=== PATIENT | male | born 2005 | race Caucasian/White ===

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

== ENCOUNTER 2023-03-16 11:20 | Emergency (ER) | payer OTHER, MEDICAID, SELFPAY ==
[2023-03-16 11:25] VITALS: BP 123/73; PULSE 94; RESP 14; TEMP 36.8; O2SAT 100
--- NOTE | 2023-03-16 11:48 | ED.GENADUL_ITS ---
Discharge Plan Disposition Patient Disposition: Home Condition: Stable Discharge Details Clinical Impression: Infectious mononucleosis Primary Care Provider: Tatyana Velazco ED Provider: Jacquelyn Temple Home Meds and New Rx's Prescriptions: No Action No Known Home Meds Discharge Instructions Instructions: Mononucleosis (ED) Additional Instructions: You tested positive for the mononucleosis virus today. Your rapid strep test, COVID and influenza tests today were negative. Drink plenty of fluids and get plenty of rest. Alternate tylenol and motrin as needed and directed for pain. Follow up with your primary care doctor in 1 week as needed. Return to the emergency department with any worsening or new concerning symptoms. Stand Alone Forms: Work Release Discharge Data Discharge Physician: Jacquelyn Temple Medical Decision Making 17-year-old male with history of asthma presents with facial and eyelid swelling, sore throat and swollen glands in his neck for the past 2 days. Patient appears fairly comfortable and nontoxic. He does have mild to moderate facial edema, mostly periorbital. He has no periorbital erythema or pain with EOMI to suggest orbital cellulitis. He has bilateral tonsillar exudates, tonsillar and uvular edema. He has mild bilateral anterior cervical lymphadenopathy. He has mild right upper quadrant tenderness but no significant hepato or splenomegaly. Suspect mononucleosis. Also could consider strep or other viral process. Will obtain rapid strep, monoscreen, FLUVID. As he has reassuring vital signs with normal heart rate and oxygen saturation, do not see an indication for IV, IV fluid hydration or lab work. Will give a dose of Motrin, Tylenol, Decadron p.o. and reassess. Monoscreen positive. Rapid strep and FLUVID negative. Patient reassessed and he feels much better. Patient feels comfortable going home. He was advised on the importance of increasing fluids, rest and alternating Tylenol and Motrin. He requested a work note. Advised to follow up with the primary care doctor for re-evaluation. Usual and customary return precautions given prior to discharge. Medical Records Medical records reviewed: Yes I reviewed the patient's medical records. Lab Data Lab results reviewed: Yes I reviewed the patient's lab results. Labs: 03/16/23 11:50 Pharynx Group A Streptococcus Culture - Pending Laboratory Tests Range/Units 03/16/23 03/16/23 11:50 11:50 COVID-19 Source Nasopharynx SARS-CoV-2 (PCR) (Negative) Negative Monoscreen (Negative) POSITIVE A Influenza Type A (PCR) (Negative) Negative Influenza Type B (PCR) (Negative) Negative RSV (PCR) (Negative) Negative HPI General Mode of arrival: ambulatory . Date/Time Provider Initiated Documentation: 03/16/23 11:21 . Limitations to Documentation: no limitations . Information obtained by: patient . HPI Narrative: Patient is a 17-year-old male with history of asthma presents for 2 days of facial swelling, predominantly around his eyes in addition to sore throat. He is also felt that the lymph nodes in his throat have been swollen. Patient states he took Benadryl last night and has had some improvement in his facial and eye swelling. He states he has been able to swallow liquids but having difficulty eating foods due to his sore throat and difficulty swallowing. He has not taken any Tylenol or ibuprofen for his symptoms. Mom reports that patient's brother had similar symptoms occurring a few years ago and was diagnosed with mono and strep. Pt denies fever, nasal congestion, cough, nausea, vomiting, diarrhea. He denies any new soaps, lotions, detergents, medications or known sick contacts. Related Data Home Medications Medication Instructions Recorded Confirmed Unknown [No Known Home Meds] 07/21/22 03/16/23 Allergies Allergy/AdvReac Type Severity Reaction Status Date / Time ondansetron Allergy Hives Unverified 03/16/23 11:33 General Stated Complaint: Sorethroat SHWETHA: 3 Review of Systems All systems reviewed & are unremarkable except as noted in HPI and below Constitutional Constitutional: Reports as per HPI, Denies chills and Denies fever(s) Eyes Eyes: Denies blurry vision ENT Ears, Nose, Mouth, and Throat: Denies dizziness, Reports odynophagia, Reports sore throat, Denies throat swelling and Reports other (facial swelling) Cardiovascular Cardiovascular: Denies chest pain and Denies dyspnea Respiratory Respiratory: Denies cough and Denies dyspnea Gastrointestinal Gastrointestinal: Denies abdominal pain, Denies diarrhea, Reports odynophagia and Denies vomiting Genitourinary Genitourinary: Denies hematuria and Denies dysuria Musculoskeletal Musculoskeletal: Denies back pain and Denies numbness Integumentary/Breasts Skin/Breast: Denies lesions and Denies rash Neurologic Neurologic: Denies dizziness, Denies localized weakness and Denies numbness Allergic/Immunologic Allergic/Immunologic: Denies throat swelling PFSH All Active Problems (Updated 03/16/23 @ 12:58 by Jacquelyn Temple DO) Infectious mononucleosis (Acute) Allergic rhinitis (Acute) Decreased vision in both eyes (Acute 12/31/17) [place] - RX glasses. Mild intermittent asthma, uncomplicated (Acute 11/01/15) Routine child health exam (Acute 05/26/13) Medical History Asthma Learning disability (03/31/18) had IEP but no longer needed by 2020 Surgical History Myringotomy w/ PE (pressure equalizing) tubes times 2 with surgery to remove 1 tube Family History Mother No problems noted. Father Adopted Other Diabetes MGGM, MGGF Essential hypertension maternal side Personal history of malignant neoplasm maternal side -many types Social History Smoking/Tobacco Use Status: Never Second Hand Exposure: No Smoking risk assessment performed?: Yes Alcohol Intake: never Drug use: Never Substance use type: does not use Household members: family Education Level: high school Details: 12th grade [employer] Pets and animals: Yes Pets and animals: cat(s) and dog(s) Seatbelt use: always Helmet use: Yes Helmet use: always Water heater temp set <120 deg: Yes Fire extinguisher in home: Yes Carbon monox detector in home: Yes Firearms in home: Yes Firearms unloaded and locked: Yes Do you feel safe at home: Yes Do you feel safe in your relationship?: Yes Additional Social history: mother at bedside Exam Const General: cooperative and no acute distress Orientation: alert, awake and oriented x3 HENMT Head: normal to inspection Ears: hearing grossly normal bilaterally, external ears normal, TM's normal bilaterally and TM abnormal scarred on the left General nose exam: external nose normal Mouth: oral mucosae normal Throat: uvula midline, posterior oropharynx abnormal edema, erythema and exudates and uvular edema Eyes General: appearance normal, both eyes and all related structures Periorbital: periorbital findings abnormal bilaterally periorbital swelling (mild-moderate, able to evaluate eyes) Pupils: PERRL EOM: EOM intact bilaterally Neck Neck: normal visual inspection, lymphadenopathy (b/l anterior cervical) and No submandibular swelling Chest Chest: normal inspection of the chest and no tenderness Resp Effort & Inspection: normal respiratory effort and able to speak in complete sentences Auscultation: clear to auscultation bilaterally Cardio Rate: regular rate Rhythm: regular rhythm GI Inspection: normal to inspection Palpation: soft, not firm, no hepatosplenomegaly, not rigid and tender in the RUQ Auscultation: hypoactive bowel sounds Skin General skin exam: no rashes or lesions noted Neuro General: patient alert, patient awake and patient oriented x3 Cognition: normal cognition Speech: speech normal Motor: muscle tone normal throughout Sensory Exam: no sensory deficits noted Extrem General: normal to inspection, full ROM, capillary refill normal, no calf tenderness bilaterally and no edema Psych Appearance: grossly normal Mental Status: mental status grossly normal Speech and Movement: speech and movement normal Affect: normal affect Course Vital Signs Vital signs: Vital Signs Temperature 98.2 F 03/16/23 11:25 Pulse 94 H 03/16/23 11:25 Respiratory Rate 14 03/16/23 11:25 Blood Pressure 123/73 03/16/23 11:25 Pulse Oximetry 100 03/16/23 11:25 Temperature 98.2 F 03/16/23 11:25 Temperature Source Oral 03/16/23 11:25 Pulse 94 H 03/16/23 11:25 Respiratory Rate 14 03/16/23 11:25 Respiratory Effort Normal, Non-Labored 03/16/23 11:31 Blood Pressure 123/73 03/16/23 11:25 Pulse Oximetry 100 03/16/23 11:25 Oxygen Delivery Method Room Air 03/16/23 11:25 Oxygen Flow Rate 0 03/16/23 11:25 Pain Level 5 03/16/23 11:25
[2023-03-16 12:09] LABS: Mono Screening POSITIVE (Negative)
[2023-03-16] MEDS: Dexamethasone 10 MG/ML VIAL PO (12:16)
[2023-03-16] MEDS: Acetaminophen 500 MG TAB 1000 MG PO (12:16)
[2023-03-16] MEDS: Ibuprofen 600 MG TAB PO (12:16)
[2023-03-16 12:37] LABS: COVID-19 PCR Negative (Negative); Influenza A PCR Negative (Negative); Influenza B PCR Negative (Negative); RSV PCR Negative (Negative)
[2023-03-16 12:41] LABS: Source Nasopharynx
[2023-03-16 13:08] VITALS: BP 123/73; PULSE 86; RESP 16; TEMP 36.8; O2SAT 100
== END 2023-03-16 13:14 | disposition home or self-care (01) ==
PROVIDERS: Emergency Provider Physician Assistant; PCP Student in an Organized Health Care Education/Training Program
DX: B27.90 Infectious mononucleosis, unspecified without complication (principal)
CPT/HCPCS: 87637; 87880; 99283; 86308; 87081; J1100

== ENCOUNTER → 2023-08-26 01:28 | Outpatient (CLI) | payer OTHER, MEDICAID, SELFPAY ==
--- NOTE | 2023-08-26 08:15 | DI.MRI_ITS ---
Exam(s) MR IAC BRAIN WO/W EXAM: MR IAC BRAIN WO/W CLINICAL HISTORY: Moderately severe sensorineural hearing loss,. TECHNIQUE: Multiplanar multisequence MRI of the brain and internal auditory canals was performed. CONTRAST MATERIAL: IV Contrast: 12 mL of Dotarem contrast administered. COMPARISON: No exams were available for comparison FINDINGS: The examination is limited due to patient motion artifact. VENTRICLES AND EXTRA AXIAL SPACES: Normal in size and morphology for the patient's age. HEMORRHAGE: None. CEREBRAL PARENCHYMA: No focus of restricted diffusion to suggest acute infarct. No space-occupying le irma identified. MIDLINE SHIFT: None. BRAINSTEM/CEREBELLUM: Normal. CALVARIUM: Normal. ENHANCEMENT: No suspicious enhancement identified. VISUALIZED PARANASAL SINUSES/MASTOIDS: There are mucous retention cysts or polyps in the maxillary si nuses bilaterally. The remaining visualized paranasal sinuses and mastoid air cells are clear. [place]: Normal flow void. PITUITARY GLAND: Unremarkable. IAC/CP ANGLE: The internal auditory canals are within normal limits. The cerebellar pontine angles ar e unremarkable. No enhancing lesions are seen. Visualized portion of the facial nerves appear within normal limits. OTHER FINDINGS: None. IMPRESSION: Unremarkable MRI of the brain and internal auditory canals. DATA REPOSITORY:
[2023-08-26] MEDS: Normal Saline Flush 10 ML SYR IVP (12:48)
[2023-08-26] MEDS: Gadoterate meglumine 20 ML SYRINGE 12 ML IVP (12:49)
== END ==
PROVIDERS: PCP Family Medicine; Visit Provider Registered Nurse Maternal Newborn
DX: H90.3 Sensorineural hearing loss, bilateral (principal)
CPT/HCPCS: 70553

== ENCOUNTER 2024-07-09 00:46 | Outpatient (CLI) | payer OTHER, MEDICAID, SELFPAY ==
--- NOTE | 2024-07-09 | DI.RAD_ITS ---
Exam(s) XR FOREARM LT EXAM: XR FOREARM LT CLINICAL HISTORY: PAIN LT ARM, M79.602. TECHNIQUE: 2D digital imaging was performed. Two views. COMPARISON: No exams were available for comparison FINDINGS: BONES: No acute fracture is present. No bony destructive lesion is seen. Visualized portion of elbow and wrist joints are unremarkable. SOFT TISSUE: Small linear metallic foreign body noted in the soft tissues near the distal ulna. No s urrounding air or soft tissue swelling. IMPRESSION: Small metallic foreign body near the distal ulna. DATA REPOSITORY: RADIATION DOSE DELIVERED:
--- OUTSIDE RECORDS SUMMARY | 2024-07-09 00:57 | XMS_ITS | Data Portability ---
Author Organization [place] [facility] [place] [address] Assessment Encounter Date Assessment Date Assessment LastModified by Organization Details LastModified Time 07/06/2024 07/06/2024 Nitesh is a 18yo male with PMH sensorineural hearing loss and asthma here today for his annual wellness exam and flu shot. Patient seen with JANENE Kim from [facility]. Patient seen and evaluated by me, Dr. Hoskins, and I reviewed and edited the note. [email or web address] Not available 07/06/2024 16:54:10 Plan of Treatment Reminders Order Date Submit Date Provider Last Modified By Organization Details Last Modified Time Details Appointments Annual Wellness Exam 30 2024 07:30A M Not available Not available Not available Lab None recorded. Referral None recorded. Procedures None recorded. Surgeries None recorded. Imaging XR, forearm, 2 view 2023 0[address] [facility], [place], [address], 07/07/2024 07:15:24 Medication Orders None recorded. Patient TargetsNo targets recorded. Patient InstructionsNo instructions recorded. Reason for Referral None Reported. Problems Name Problem SNOMED Code Status Onset Date Resolution Date Notes Provider Name and Address Organization Details Recorded Time Asthma 820409796 Active 2022 Problem Code: J45.998; Problem Code Type: ICD-10; Not Available [facility] 3 05:03:30 Allergic rhinitis 40280165 Active 2022 Problem Code: J30.9; Problem Code Type: ICD-10; Not Available [facility] 3 05:03:30 Bilnelidaa l hearing loss 87330654 Active 2022 Problem Code: H91.93; Problem Code Type: ICD-10; Not Available [facility] 3 05:03:30 Adult health examinat ion Active 2022 Problem Code: Z00.00; Problem Code Type: ICD-10; Not Available [facility] 3 05:03:30 Localize d eruption of skin 644011066 Completed 202005/28/2023 Problem Code: R21; Problem Code Type: ICD-10; Not Available [facility] 3 05:03:31 Cellulit is 257165131 Completed 202105/28/2023 Problem Code: L03.90; Problem Code Type: ICD-10; Not Available [facility] 3 05:03:31 Infectio us mononucl eosis 346366232 Completed 202205/28/2023 Problem Code: B27.90; Problem Code Type: ICD-10; Not Available [facility] 3 05:03:32 Viral disease 23216811 Active 2022 Problem Code: B34.9; Problem Code Type: ICD-10; Not Available [facility] 4 05:37:13 Sensorin eural hearing loss of yaron l ears 561627778 Active 2022 Problem Code: H90.3; Problem Code Type: ICD-10; Not Available [facility] 4 05:37:13 Pain in left arm 003763072 Active [address], [place], [address] , [facility] 4 15:35:33 Underwei ght 507001367 Active [address], [facility] [phone] [facility] 4 15:36:28 Problem Notes None recorded. Medical Equipment None Reported. Medications Name Sig Start Date Stop Date Status Note LastModified by Organization Details LastModified Time triamcinolo ne acetonide 0.5 % topical cream Apply a small amount to affected area twice a day apply to affected area BID. Do not use in the same area longer than 2 weeks. 07/27 completed Not Available Not Available Not Available cephalexin 500 mg capsule Take 1 capsule by mouth four times a day 06/12 completed Not Available Not Available Not Available Ventolin HFA 90 mcg/actuati on aerosol inhaler Inhale 2 puff using inhaler every four to six hours as needed 2022 active Not Available Not Available Not Avai lable Vitals Date Recorded Body height Body temperature Oxygen saturation Oxygen saturation in Arterial blood by Pulse oximetry Body mass index (BMI) Percentile per age and sex Body mass index (BMI) Body weight Heart rate Systolic blood pressure Diastolic blood pressure Provider Name and Address Organization Details Last Updated DateTime 180.34 cm 97.8 [degF] 99 % 99 % 1 % 18.5 kg/m2 81809.7 9 g 74 /min 114 mm[Hg] 70 mm[Hg] SIMONE CERVANTES [place] [facility] 15:07:33 Social History Question Answer Notes LastModified by Organizat ion Details LastModified Time Tobacco Smoking Status Never Smoker SIMONE CERVANTES [place] null, [facility] 07/06/2024 15:04:05 What Was The Date Of Your Most Recent Tobacco Screening? 07/06/2024 Information not available 07/06/2024 Do You Or Have You Ever Used Any Other Forms Of Tobacco Or Nicotine? No Information not available 07/06/2024 Sex: Male Functional Status None recorded. Mental Status None recorded. Family History Relationship Description Onset Age of this Age Resolved Age Notes Maternal Grandfather Multiple myeloma Maternal Aunt Familial cancer of breast Mothers side of family Notes:Large family history o f cancer. Medical History No medical history recorded. Immunizations Vaccine Type Date Status Provider Name and Address Organization Details Recorded Time Influenza, split virus, trivalent, PF 07/06/2024 completed MD [address], [place], [address], [facility]. 07/06/2024 16:52:07 MMR 09/10/2004 completed Not Available [facility] 04:55:33 MMR 10/12/2008 completed Not Available [facility] 04:55:33 DTaP, unspecified formulation 2003 completed Not Available [facility] 09/05/2023 04:55:33 DTaP, unspecified formulation 01/19/2004 completed Not Available [facility] 09/05/2023 04:55:33 DTaP, unspecified formulation 02/25/2005 completed Not Available [facility] 09/05/2023 04:55:34 DTaP, unspecified formulation 03/06/2004 completed Not Available [facility] 09/05/2023 04:55:34 DTaP, unspecified formulation 10/12/2008 completed Not Available [facility] 09/05/2023 04:55:34 meningococcal ACWY, unspecified formulation 11/01/2015 completed Not Available [facility] 09/05/2023 04:55:34 meningococcal ACWY, unspecified formulation 11/14/2020 completed Not Available [facility] 09/05/2023 04:55:34 pneumococcal, unspecified formulation 2003 completed Not Available [facility] 09/05/2023 04:55:34 pneumococcal, unspecified formulation 01/19/2004 completed Not Available [facility] 09/05/2023 04:55:34 pneumococcal, unspecified formulation 02/25/2005 completed Not Available [facility] 09/05/2023 04:55:35 pneumococcal, unspecified formulation 03/06/2004 completed Not Available [facility] 09/05/2023 04:55:35 Tdap 11/01/2015 completed Not Available [facility] 04:55:35 HPV, unspecified formulation 01/13/2017 completed Not Available [facility] 09/05/2023 04:55:35 HPV, unspecified formulation 07/22/2017 completed Not Available [facility] 09/05/2023 04:55:35 Influenza, split virus, quadrivalent, PF 08/21/2020 completed Not Available [facility] 09/05/2023 04:55:35 Hib, unspecified formulation 2003 completed Not Available [facility] 09/05/2023 04:55:36 Hib, unspecified formulation 01/19/2004 completed Not Available [facility] 09/05/2023 04:55:36 Hib, unspecified formulation 02/25/2005 completed Not Available [facility] 09/05/2023 04:55:36 Hib, unspecified formulation 09/10/2004 completed Not Available [facility] 09/05/2023 04:55:36 varicella 09/10/2004 completed Not Available [facility] 04:55:36 varicella 10/12/2008 completed Not Available [facility] 04:55:36 SARS-COV-2 (COVID-19) vaccine, UNSPECIFIED 01/29/2021 completed Not Available [facility] 09/05/2023 04:55:36 SARS-COV-2 (COVID-19) vaccine, UNSPECIFIED 02/19/2021 completed Not Available [facility] 09/05/2023 04:55:37 SARS-COV-2 (COVID-19) vaccine, UNSPECIFIED 10/22/2021 completed Not Available [facility] 09/05/2023 04:55:37 Hep B, unspecified formulation 2003 completed Not Available [facility] 09/05/2023 04:55:37 Hep B, unspecified formulation 11/10/2018 completed Not Available [facility] 09/05/2023 04:55:37 Hep B, unspecified formulation 01/19/2004 completed Not Available [facility] 09/05/2023 04:55:37 Hep B, unspecified formulation 03/06/2004 completed Not Available [facility] 09/05/2023 04:55:37 Hep A, unspecified formulation 10/30/2011 completed Not Available [facility] 09/05/2023 04:55:37 Hep A, unspecified formulation 09/24/2010 completed Not Available [facility] 09/05/2023 04:55:38 influenza, unspecified formulation 12/12/2021 completed Not Available [facility] 09/05/2023 04:55:38 polio, unspecified formulation 2003 completed Not Available [facility] 09/05/2023 04:55:38 polio, unspecified formulation 01/19/2004 completed Not Available [facility] 09/05/2023 04:55:38 polio, unspecified formulation 02/25/2005 completed Not Available [facility] 09/05/2023 04:55:38 polio, unspecified formulation 03/06/2004 completed Not Available [facility] 09/05/2023 04:55:38 polio, unspecified formulation 10/12/2008 completed Not Available [facility] 09/05/2023 04:55:39 Past Encounters Encounter ID Performer Location Encounter Start Date Encounter Closed Date Diagnosis/Indication Diagnosis SNOMED-CT Code Diagnosis ICD10 Code [id number] RENITA HOSKINS MD [address] [phone] 07/06/2024 14:52:51 07/06/2024 15:59:42 Adult health examination 919276574 Z00.00 Pain in left arm 4457085 00 M79.602 Underweight 251787107 R6 3.6 Active or passive immunization 014160079 Z23 Excessive caffeine intake 9148260019 14663 R63.8 Tobacco user 984423793 Z 72.0 Asthma 071189048 J45.90 9 Health Concerns Section Related Observation LastModified by Organization Detai ls LastModified Time None Recorded Concern Status LastModified by Organization Details LastModified Time None Recorded Advance Directives Directive None Recorded Payers Encounter Date Sequence Insurance Name Policy Number Policy Christianson Covered Member ID Christianson Member ID Guarantor Name 07/06/2024 1 *SELF PAY* Hema Berkowitz Bernardo Notes Date Note Type Note Provider Name and Address Organization Details Recorded Time 07/06/2024 text/html HPI Notes: Buck quiroz is a 18yo male with PMH sensorineural hearing loss and asthma here today for his annual wellness exam and flu shot. His main concerns today are discussing how to gain weight and a possible piece of metal in his arm. Desire for weight gain/ sleep issues/ tobacco and caffeine use: He would like to gain about 10 pounds or so because he gets really cold sometimes. He denies constipation, diarrhea, abdominal pain, hair thinning, joint pain, or mood changes. He has a coffee (12oz from [employer] with sugar and milk) for breakfast. For lunch, he has a sandwich or cheeseburger with fries and chips w/ a soda and Red Bull. For dinner, he has meat with potatoes and a vegetable (or whatever his mom makes) with a soda. He does not drink alcohol frequently (maybe a beer a month). He does use chewing tobacco once daily. He struggles to fall asleep often. Sometimes, he falls asleep right away at 9:30pm, and other nights he goes to bed at that time and can't fall asleep until 2am. He wakes up at 5am most days. 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 He said that the Red Bull helps him focus at work and accomplish tasks. He has never been diagnosed with ADHD. Metal in arm: He thinks he got some metal in his arm two weeks ago when he was working with a chisel. He was working with a chisel when he thinks a piece went into his left forearm. He said that it was swollen and bleeding. It has since healed, but he said it is painful to the touch. Asthma: He has had well-controlled asthma, only requiring one use of his inhaler over the last year or so. RENITA HOSKINS MD [address], [place], [address], [facility]. 07/06/2024 16:55:23
--- OUTSIDE RECORDS SUMMARY | 2024-07-09 00:57 | XMS_ITS | Clinical Summary ---
Author Organization [facility] Address [address] [place] [address] Care Team Providers Care Pasta Press Operator Name Role Phone Unavailable Primary Care Provider Unavailabl e Immunizations Name Administration Dates Next Due Covid-19 mRNA Vaccine (PFIZE R COVID-19) PF 0.3 ml IM (12 yrs+) 02/19/2021,01/29/2021 Social History Tobacco Use Types Packs/Day Years Used Date Smoking Tobacco: Never Assessed Interpersonal Safety Answer Date Record ed Physically Hurt Never 01/08/2021 Verbally Threaten Not on file 01/08/2021 Sex and Gender Information Value Date Recorded Sex Assigned at Not on file Gender Identity Not on file Sexual Orientation Not on file Plan of Treatment Health Maintenance Due Date Last Done Comments Hepatitis C Screen 2003 Hepatitis B Vaccine (1 of 3 - 19+ 3-dose series) 2022 COVID-19 Vaccine (2022- season) 2024, 01/29/2021
--- OUTSIDE RECORDS SUMMARY | 2024-07-09 00:57 | XMS_ITS | Encounter Summary ---
Author Organization [facility] Address [address] [place] [address] Care Team Providers Care Ocean Transportation Intermediary Name Role Phone Unavailable Primary Care Provider Unavailabl e Encounter Details Date Type Department Care Team (Late st Contact Info) Description 01/29/2021 9:30 EDT Immunization [facility] Testing [address] [place] [address] Social History Tobacco Use Types Packs/Day Years Used Date Smoking Tobacco: Never Assessed Interpersonal Safety Answer Date Record ed Physically Hurt Never 01/08/2021 Verbally Threaten Not on file 01/08/2021 Sex and Gender Information Value Date Recorded Sex Assigned at Not on file Gender Identity Not on file Sexual Orientation Not on file documented as of this encounter Plan of Treatment Not on file documented as of this encounter Visit Diagnoses Not on filedocumented in this encounter Orders Immunization/Injection Count Last Ordered Date First Ordered Date COVID-19 MRNA VACCINE (PFIZE R COVID-19) PF 0.3 ML IM (16 YRS+) 1 01/29/2021 documented in this encounter
--- OUTSIDE RECORDS SUMMARY | 2024-07-09 00:57 | XMS_ITS | Encounter Summary ---
Author Organization [facility] Address [address] [place] [address] Care Team Providers Care Music Video Producer Name Role Phone Unavailable Primary Care Provider Unavailabl e Encounter Details Date Type Department Care Team (Late st Contact Info) Description 02/19/2021 15:10 EDT Immunization [facility] [address] [place] [address] Social History Tobacco Use Types Packs/Day Years [...] PF 0.3 ML IM (16 YRS+) 1 02/19/2021 documented in this encounter
--- OUTSIDE RECORDS SUMMARY | 2024-07-09 00:57 | XMS_ITS | Encounter Summary ---
Author Organization [facility] Address [address] [place] [address] Care Team Providers Care Renal Dialysis Rn Name Role Phone Unavailable Primary Care Provider Unavailabl e Encounter Details Date Type Department Care Team (Late st Contact Info) Description 03/06/2021 Lab Requisition [facility] Pathology & Laboratory Medicine - [facility] [address] [place], [place] [address] Outr Resulting Lab, Provider Social History Tobacco Use Types Packs/Day Years [...] on file documented as of this encounter Procedures Procedure Name Priority Date/Time Associated Diagnosis Comments ZZCOVID-19 TEST [facility] PCR Today 03/06/2021 10:04 EDT COVID-19 TESTING Routine 03/06/2021 10:0 4 EDT documented in this encounter Results * COVID-19 TEST [facility] PCR (03/06/2021 10:04 EDT) Swab ENTIRE NASOPHARYNX / Unknown 03/06/2021 10:04 EDT 03/06/2021 16:18 EDT Provider Outr Resulting Lab MICROBIOLOGY - GENERAL ORDERABLES [facility] [address] [place] [address] * COVID-19 TESTING (03/06/2021 10:04 EDT) COVID-19 rt-PCR Result Negative Negative 03/07/2021 16:01 EDT [facility] Comment: This test has not been FDA cleared or approved. This test has been authorized by FDA under an EUA for use by authorized laboratories. This test has been authorized only for detection of nucleic acid from 2019-nCoV, not for any other viruses or pathogens. This test is only authorized for the duration of the declaration that circumstances exist justifying the authorization of emergency use of in vitro diagnostic tests for detection and/or diagnosis of 2019-nCoV under section 564(b)(1) of Act, 21 U.S.C ?? 360bbb-3(b) (1), unless the authorization is terminated or revoked sooner. Negative results do not preclude 2019-nCoV infection and should not be used as the sole basis for treatment or other patient management decisions. Negative results must be combined with clinical observations, patient history, and epidemiological information. This test was developed and its performance characteristics determined by [facility]. It has not been cleared or approved by the US Food and Drug Administration. FDA does not require this test to go through premarket FDA review. This test is used for clinical purposes. It should not be regarded as investigational or for research. This laboratory is certified under the Clinical Laboratory Improvement Amendments (CLIA) as qualified to perform high complexity clinical laboratory testing. This test is based on the CDC COVID-19 Emergency Use Authorization (EUA) assay, with minor modification as defined by the FDA Performed on the Applied AdStacko 7 Pro RT-PCR System. Performing Lab [facility] Lab 03/07/2021 16:01 EDT [facility] Swab 03/06/2021 10:0 4 EDT 03/06/2021 16:18 EDT Provider Outr Resulting Lab MICROBIOLOGY - GENERAL ORDERABLES [facility] [address] [place] [address] documented in this encounter Visit Diagnoses Not on filedocumented in this encounter
--- OUTSIDE RECORDS SUMMARY | 2024-07-09 00:57 | XMS_ITS | Continuity of Care Document ---
Author Organization [place] - [facility] Address [address] [place] [address] Assessment Encounter Date Assessment Date Assessment LastModified by Organization Details LastModified Time 07/06/2024 07/06/2024 Nitesh is a 18yo male with H sensorineural hearing loss and asthma here today for his annual wellness exam and flu shot. Patient seen with Emanuel Lopez MS3 from [facility]. Patient seen and evaluated by me, Dr. [...] XR, forearm, 2 view 2023 024 [facility], [address], [place], [address], 07/07/2024 07:15:24 Medication Orders None recorded. Patient TargetsNo targets recorded. Patient InstructionsNo instructions recorded. Reason for Referral None Reported. Problems Name Problem SNOMED Code Status Onset Date Resolution Date Notes Provider Name and Address Organization Details Recorded Time Asthma 094457430 Active 2022 Problem Code: J45.998; Problem Code Type: ICD-10; Not Available [facility] 3 05:03:30 Allergic rhinitis 41964049 Active 2022 Problem Code: J30.9; Problem Code Type: ICD-10; Not Available [facility] 3 05:03:30 Bilatera l hearing loss 97752141 Active 2022 Problem Code: H91.93; Problem Code Type: ICD-10; Not Available [facility] 3 05:03:30 Adult health examinat ion Active 2022 Problem Code: Z00.00; Problem Code Type: ICD-10; Not Available [facility] 3 05:03:30 Localize d eruption of skin 935935374 Completed 202005/28/2023 Problem Code: R21; Problem Code Type: ICD-10; Not Available [facility] 3 05:03:31 Cellulit is 116417711 Completed 202105/28/2023 Problem Code: L03.90; Problem Code Type: ICD-10; Not Available [facility] 3 05:03:31 Infectio us mononucl eosis 467033155 Completed 202205/28/2023 Problem Code: B27.90; Problem Code Type: ICD-10; Not Available [facility] 3 05:03:32 Viral disease 65510317 Active 2022 Problem Code: B34.9; Problem Code Type: ICD-10; Not Available [facility] 4 05:37:13 Sensorin eural hearing loss of bilatera l ears 932337096 Active 2022 Problem Code: H90.3; Problem Code Type: ICD-10; Not Available [facility] 4 05:37:13 Pain in left arm 694564456 Active [address], [place] [id number] [place] [address] 4 15:35:33 Underwei ght 395754406 Active [address], [place] [id number] 4 15:36:28 Problem Notes None recorded. Medical [...] % 99 % 1 % 18.5 kg/m2 91358.7 9 g 74 /min 114 mm[Hg] 70 mm[Hg] SIMONE CERVANTES MA [facility] 15:07:33 Social History Question Answer Notes LastModified by Organizat ion Details LastModified Time Tobacco Smoking Status Never Smoker SIMONE CERVANTES MA null, [facility] 07/06/2024 15:04:05 What Was The Date [...] Influenza, split virus, trivalent, PF 07/06/2024 completed RENITA HOSKINS MD [address], [place], [address], [facility] 07/06/2024 16:52:07 MMR 09/10/2004 completed Not Available [facility] 04:55:33 MMR 10/12/2008 completed Not Available [facility] 04:55:33 DTaP, unspecified formulation 2003 completed Not Available [facility] 09/05/2023 04:55:33 DTaP, unspecified formulation 01/19/2004 completed Not Available [facility] 09/05/2023 04:55:33 DTaP, unspecified formulation 02/25/2005 completed Not Available [facility] 09/05/2023 04:55:34 DTaP, unspecified formulation 03/06/2004 completed Not Available [facility] 09/05/2023 04:55:34 DTaP, unspecified formulation 10/12/2008 completed Not Available [facility] 09/05/2023 04:55:34 meningococcal ACWY, unspecified formulation 11/01/2015 completed Not Available [facility] 09/05/2023 04:55:34 meningococcal ACWY, unspecified formulation 11/14/2020 completed Not Available [facility] 09/05/2023 04:55:34 pneumococcal, unspecified formulation 2003 completed Not Available [facility] 09/05/2023 04:55:34 pneumococcal, unspecified formulation 01/19/2004 completed Not Available [facility] 09/05/2023 04:55:34 pneumococcal, unspecified formulation 02/25/2005 completed Not Available [facility] 09/05/2023 04:55:35 pneumococcal, unspecified formulation 03/06/2004 completed Not Available [facility] 09/05/2023 04:55:35 Tdap 11/01/2015 completed Not Available [facility] 04:55:35 HPV, unspecified formulation 01/13/2017 completed Not Available [facility] 09/05/2023 04:55:35 HPV, unspecified formulation 07/22/2017 completed Not Available [facility] 09/05/2023 04:55:35 Influenza, split virus, quadrivalent, PF 08/21/2020 completed Not Available [facility] 09/05/2023 04:55:35 Hib, unspecified formulation 2003 completed Not Available [facility] 09/05/2023 04:55:36 Hib, unspecified formulation 01/19/2004 completed Not Available [facility] 09/05/2023 04:55:36 Hib, unspecified formulation 02/25/2005 completed Not Available [facility] 09/05/2023 04:55:36 Hib, unspecified formulation 09/10/2004 completed Not Available [facility] 09/05/2023 04:55:36 varicella 09/10/2004 completed Not Available [facility] 04:55:36 varicella 10/12/2008 completed Not Available [facility] 04:55:36 SARS-COV-2 (COVID-19) vaccine, UNSPECIFIED 01/29/2021 completed Not Available [facility] 09/05/2023 04:55:36 SARS-COV-2 (COVID-19) vaccine, UNSPECIFIED 02/19/2021 completed Not Available [facility] 09/05/2023 04:55:37 SARS-COV-2 (COVID-19) vaccine, UNSPECIFIED 10/22/2021 completed Not Available [facility] 09/05/2023 04:55:37 Hep B, unspecified formulation 2003 completed Not Available [facility] 09/05/2023 04:55:37 Hep B, unspecified formulation 11/10/2018 completed Not Available [facility] 09/05/2023 04:55:37 Hep B, unspecified formulation 01/19/2004 completed Not Available [facility] 09/05/2023 04:55:37 Hep B, unspecified formulation 03/06/2004 completed Not Available [facility] 09/05/2023 04:55:37 Hep A, unspecified formulation 10/30/2011 completed Not Available [facility] 09/05/2023 04:55:37 Hep A, unspecified formulation 09/24/2010 completed Not Available [facility] 09/05/2023 04:55:38 influenza, unspecified formulation 12/12/2021 completed Not Available [facility] 09/05/2023 04:55:38 polio, unspecified formulation 2003 completed Not Available [facility] 09/05/2023 04:55:38 polio, unspecified formulation 01/19/2004 completed Not Available [facility] 09/05/2023 04:55:38 polio, unspecified formulation 02/25/2005 completed Not Available [facility] 09/05/2023 04:55:38 polio, unspecified formulation 03/06/2004 completed Not Available [facility] 09/05/2023 04:55:38 polio, unspecified formulation 10/12/2008 completed Not Available [facility] 09/05/2023 04:55:39 Past Encounters Encounter ID Performer Location Encounter Start Date Encounter Closed Date Diagnosis/Indication Diagnosis SNOMED-CT Code Diagnosis ICD10 Code [id number] RENITA HOSKINS MD [address] [address] 07/06/2024 14:52:51 07/06/2024 15:59:42 Adult health examination 065779098 Z00.00 Pain in left arm 1714719 00 M79.602 Underweight 672278610 R6 3.6 Active or passive immunization 672057055 Z23 Excessive caffeine intake 5315666881 68696 R63.8 Tobacco user 493510904 Z 72.0 Asthma 835098628 J45.90 9 Health Concerns Section Related Observation LastModified by Organization Detai ls LastModified Time None Recorded Concern Status LastModified by Organization Details LastModified Time None Recorded Payers Encounter Date Sequence Insurance Name Policy Number Policy Christianson Covered Member ID Christianson Member ID Guarantor Name 07/06/2024 1 *SELF PAY* Hema adan Chang Notes Date Note Type Note Provider Name [...] changes. He has a coffee (12oz from [employer] with sugar and milk) for breakfast. 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 He said that the Red Bull helps [...] so. RENITA HOSKINS MD [address], [place], [address], [facility], [facility]. 07/06/2024 16:55:23
--- OUTSIDE RECORDS SUMMARY | 2024-07-09 00:57 | XMS_ITS | Referral Summary ---
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
== END 2024-07-09 01:06 ==
LOC: DI 00:46
PROVIDERS: PCP Family Medicine; Visit Provider Family Medicine
DX: M79.602 Pain in left arm (principal)
CPT/HCPCS: 73090

== ENCOUNTER 2024-11-02 17:11 | Outpatient (REF) | payer MEDICAID, SELFPAY ==
[2024-11-02 21:12] LABS: Abs Immature Grans 0.07 10^3/uL (0.0-0.06); Absolute Eosinophil Count 0.05 10^3/uL (0.0-0.7); Absolute Lymphocyte Count 1.72 10^3/uL (1.2-3.4); Absolute Monocyte Count 1.07 10^3/uL (0.1-0.8); Basophils % 0.2 %; Eosinophils % 0.3 %; HCT 41.1 % (40.0-50.0); HGB 14.3 g/dL (13.5-17.5); Immature Grans % 0.4 %; Lymphocytes % 10.3 %; MCH 30.6 pg (27.0-33.0); MCHC 34.8 % (32.0-36.0); MCV 88 fL (80-95); MPV 10.9 fL (8.0-11.0); Monocytes % 6.4 %; Neutrophils % 82.4 %; Platelet Count 201 10^3/uL (130-400); RBC 4.68 10^6/uL (4.36-5.78); RDW-SD 38.5 fL; WBC 16.73 10^3/uL (4.4-10.8)
[2024-11-02 21:19] LABS: Absolute Basophil Count 0.03 10^3/uL (0.0-0.2); Absolute Neutrophil Count 13.79 10^3/uL (1.2-6.7)
[2024-11-02 21:23] LABS: ALT 15 U/L (16-63); AST 14 U/L (15-37); Albumin 4.1 g/dL (3.4-5.0); Alkaline Phosphatase 87 U/L (46-116); Anion Gap 7.8 mmol/L (3-11); BUN 12 mg/dL (7-18); Bilirubin, Total 1.79 mg/dL (0.2-1.0); C-Reactive Protein 8.06 mg/dL (<or=0.5); CO2 28.2 mmol/L (21.0-32.0); CREATININE 1.2 mg/dL (0.70-1.30); Calcium 8.5 mg/dL (8.5-10.1); Chloride 102 mmol/L (98-107); Estimated GFR 88.24 (mL/min/1.73m2); Glucose 100 mg/dL (74-106); Potassium 4.2 mmol/L (3.5-5.1); Sodium 138 mmol/L (136-145)
[2024-11-02 21:26] LABS: Bilirubin Negative (Negative); Blood Trace-lysed (Negative); Clarity Sl Cloudy (Clear); Glucose Negative (Negative); Ketones Negative (Negative); Leukocyte Esterase Small (Negative); Nitrite Positive (Negative); Specific Gravity 1.015 (1.005-1.025); pH 7.5 (5-8)
[2024-11-02 21:31] LABS: Bacteria Moderate HPF (Negative); C & S Indicated? Yes; Casts Negative LPF (Negative); Crystals Negative HPF (Negative); Epithelial Cells Negative HPF (Negative); Mucus Moderate (Negative); RBC 0-2 HPF (0-2); WBC 20-50 HPF (0-5)
[2024-11-04 12:11] LABS: Chlamydia Result Negative (Negative); GC Result Negative (Negative)
== END 2024-11-02 17:12 | disposition home or self-care (01) ==
LOC: NCHCN 17:11
PROVIDERS: PCP Family Medicine; Visit Provider Family Medicine
DX: R35.0 Frequency of micturition (principal); R10.9 Unspecified abdominal pain; B96.29 Other Escherichia coli [E. coli] as the cause of diseases classified elsewhere
CPT/HCPCS: 80053; 87077; 87491; 87591; 81003; 81015; 85025; 86140; 87086; 87186

== ENCOUNTER 2024-11-04 11:01 | Emergency (ER) | payer MEDICAID, SELFPAY ==
[2024-11-04 11:05] VITALS: BP 125/85; PULSE 87; RESP 16; TEMP 36.4; O2SAT 98
--- NOTE | 2024-11-04 11:07 | W.ED.GENAD ---
Discharge Plan Disposition Patient Disposition: Home Discharge Details Clinical Impression: Complicated urinary tract infection, Constipation Primary Care Provider: Edwige Hoskins ED Provider: Cora Wilkinson Home Meds and New Rx's Prescriptions: Continued levofloxacin 750 mg tablet 750 mg PO DAILY Discharge Instructions Additional Instructions: Please call [facility] this afternoon to schedule follow-up appointment. Continue taking your levofloxacin as prescribed. You may continue to use ibuprofen 600 mg every 6-8 hours as needed for discomfort. For constipation I recommend the use of MiraLAX. Take 1 capful in full glass of water twice a day until you are having regular soft stools. They will hydrate, drinking plenty of fluids throughout the day. Return to emergency care if you develop new fevers, vomiting/unable to keep down your medications, new severe abdominal pain, inability to urinate or blood in your urine, or if you are very worried any 3 rechecked again immediately Referrals: Edwige Hoskins [Primary Care Provider] - [facility] General Date/Time Provider Initiated Documentation: 11/04/24 11:06. HPI Narrative: Nitesh is a 19year old male who presents to the emergency department today for evaluation of lower abdominal pain accompanied by dysuria and foul-smelling urine. He reports his symptoms started 4 days ago, includes fever/chills, nausea, discomfort with urination, hematuria (x 1 day, now resolved). He denies vomiting, change in bowel or bladder function, change in testicles, penile discharge. He is sexually active with a female partner in a mutually monogamous relationship x 2 years, says they use condoms every time. He was evaluated on 11/02/2024 and diagnosed with a UTI with possible pyelonephritis, given a dose of ceftriaxone in the office and started on Levaquin daily. He has taken 1 dose of Levaquin last night at 6 PM. No history of STDs or abdominal surgeries.. Past medical history is significant for intermittent asthma, hearing loss. Physical exam reassuring. Nitesh is alert and oriented, no acute distress. Abdomen is soft, nondistended, mild generalized tenderness with palpation. Normoactive bowel sounds. No CVA tenderness. No penile discharge or abnormalities/swelling to urethral meatus, penis, or testicles. D/dx includes but is not limited to: UTI, pyelonephritis, nephrolithiasis, STD, urethral irritation, gastritis, pancreatitis I independently interpreted the following tests: CBC,CMP, and lipase reassuring. CT abdomen/pelvis performed, significant for constipation and thickening of urinary bladder consistent with cystitis. I did review urine culture results from 11/02/24, positive for greater than 100,000 E. coli. Sensitivity not yet resulted. History and presentation consistent with complicated UTI in male with constipation. No indication at this time for inpatient management or change in treatment regimen. Reviewed discharge instructions with patient, including symptomatic management, importance of continuing antibiotics as prescribed, and red flags indicating need for return to emergency care Related Data Home Medications ?Medication ?Instructions ?Recorded ?Confirmed levofloxacin 750 mg tablet 750 mg PO DAILY 11/04/24 11/04/24 Allergies Allergy/AdvReac Type Severity Reaction Status Date / Time ondansetron Allergy Hives Unverified 11/04/24 11:10 General SHWETHA: 3 Review of Systems Narrative: See HPI Exam Const General: cooperative, healthy appearing, comfortable, no acute distress, well developed and well groomed Nutritional Appearance: average body habitus and well nourished Orientation: alert and oriented x3 Resp Effort & Inspection: normal respiratory effort and able to speak in complete sentences Auscultation: clear to auscultation bilaterally Cardio Rate: regular rate Rhythm: regular rhythm GI Inspection: normal to inspection, no abdominal wall ecchymosis and non-distended Palpation: soft, not firm, no guarding and tender (Generalized) with no rebound tenderness Auscultation: normal bowel sounds Male General Exam: Yes normal external exam Penis: normal penis Scrotum: scrotum normal Testes: normal, testicular lie normal and epididymides normal Back/Spine/Pelvis Back: no CVA tenderness Skin General skin exam: no rashes or lesions noted Medical Decision Making Quality:SDOH Health Related Social Needs: No Data to Display PFSH All Active Problems (Updated 11/04/24 @ 12:49 by Cora Sánchez) Constipation (Acute) Complicated urinary tract infection (Acute) Bilateral sensorineural hearing loss (Acute) Allergic rhinitis (Acute) Decreased vision in both eyes (Acute 12/31/17) [place] - RX glasses. Mild intermittent asthma, uncomplicated (Acute 11/01/15) Routine child health exam (Acute 05/26/13) Medical History Asthma Learning disability (03/31/18) had IEP but no longer needed by 2020 Surgical History Myringotomy w/ PE (pressure equalizing) tubes times 2 with surgery to remove 1 tube Family History Mother No problems noted. Father Adopted Other Diabetes MGGM, MGGF Essential hypertension maternal side Personal history of malignant neoplasm maternal side -many types Social History Smoking/Tobacco Use Status: Never Second Hand Exposure: No Smoking risk assessment performed?: Yes Alcohol Intake: never Drug use: Never Substance use type: does not use Household members: family Education Level: high school Details: 12th grade [employer] Pets and animals: Yes Pets and animals: cat(s) and dog(s) Seatbelt use: always Helmet use: Yes Helmet use: always Water heater temp set <120 deg: Yes Fire extinguisher in home: Yes Carbon monox detector in home: Yes Firearms in home: Yes Firearms unloaded and locked: Yes Do you feel safe at home: Yes Do you feel safe in your relationship?: Yes Additional Social history: mother at bedside
[2024-11-04 11:11] VITALS: BP 125/85; PULSE 87; RESP 16; TEMP 36.4; O2SAT 98
--- NOTE | 2024-11-04 11:15 | DI.CT_ITS ---
Exam(s) CT ABDOMEN PELVIS W EXAM: CT ABDOMEN PELVIS W CLINICAL HISTORY: lower abd pain, dysuria, fevers TECHNIQUE: Imaging Protocol: Axial computed tomography images with coronal and sagittal reformatted images were created and reviewed. CONTRAST MATERIAL: Intravenous: Omnipaque 350 Contrast volume:75 mL Oral: No COMPARISON: CT CT ABDOMEN PELVIS W from 08/14/2020 FINDINGS: ABDOMEN: Lung Bases: No acute abnormality. Liver: Normal density. No measurable mass. Portal, Superior Mesenteric, and Splenic Veins: Unremarkable. Gallbladder and Biliary Tract: No radiodense calculus or dilation. Pancreas: Normal density, no abnormal calcifications or inflammatory process. Spleen: Normal. Adrenals: No masses seen. Kidneys: Normal size, contour and axis. No radiodense stones or obstructive uropathy. No masses seen. Abdominal Aorta: Abdominal portion non-dilated. Bowel: No obstruction or bowel wall thickening. No evidence of appendicitis. There is stool througho ut the colon suggesting constipation. Peritoneal Cavity: There is a trace amount of free fluid in the pelvis. No free air. Lymph Nodes: Within normal limits. Bones: Within normal limits for the patient's age. Soft Tissues: Unremarkable. PELVIS: Bladder: There is mild thickening of the wall of the urinary bladder. This may be due to underdisten tion but cystitis cannot be excluded. No bladder stones are present. Reproductive Organs: Unremarkable as visualized. Lymph Nodes: Within normal limits. Bones: Within normal limits for the patient's age. IMPRESSION: 1. Mild thickening of the wall of the urinary bladder which may be due to underdistention, but cystit is cannot be excluded. 2. Large amount of stool throughout the colon suggesting constipation. 3. No evidence of nephrolithiasis or hydronephrosis. RADIATION DOSE DELIVERED: 223.6mGy.cm Total DLP DATA REPOSITORY: All CT scans at this facility are submitted to the National Radiology Data Registry (NRDR) Dose Index Registry (DIR) with the [employer] (ACR). RADIATION OPTIMIZATION: All CT scans at this facility use at least one of these dose optimization te chniques: automated exposure control; mA and/or kV adjustment per patient size (includes targeted exa ms where dose is matched to clinical indication); or iterative reconstruction.
[2024-11-04 11:36] LABS: Abs Immature Grans 0.01 10^3/uL (0.0-0.06); Absolute Basophil Count 0.01 10^3/uL (0.0-0.2); Absolute Lymphocyte Count 0.73 10^3/uL (1.2-3.4); Absolute Monocyte Count 0.39 10^3/uL (0.1-0.8); Basophils % 0.2 %; Eosinophils % 2.4 %; HCT 40.4 % (40.0-50.0); HGB 14.1 g/dL (13.5-17.5); Immature Grans % 0.2 %; Lymphocytes % 17.8 %; MCH 30.5 pg (27.0-33.0); MCHC 34.9 % (32.0-36.0); MCV 87 fL (80-95); MPV 9.6 fL (8.0-11.0); Monocytes % 9.5 %; Neutrophils % 69.9 %; Platelet Count 188 10^3/uL (130-400); RBC 4.63 10^6/uL (4.36-5.78); RDW 12.3 % (11.8-14.1); RDW-SD 39.4 fL; WBC 4.09 10^3/uL (4.4-10.8)
[2024-11-04 11:40] LABS: Absolute Neutrophil Count 2.86 10^3/uL (1.2-6.7)
[2024-11-04] MEDS: Normal Saline - Diluent 50 ML VIAL IJ (11:40)
[2024-11-04] MEDS: Omnipaque 350 MG/ML 100 ML BTL 75 ML IJ (11:41)
[2024-11-04 11:48] LABS: Lipase 19 U/L (<78)
[2024-11-04 12:14] LABS: ALT 20 U/L (16-63); AST 34 U/L (15-37); Alkaline Phosphatase 78 U/L (46-116); Anion Gap 7.3 mmol/L (3-11); BUN 14 mg/dL (7-18); Bilirubin, Total 0.58 mg/dL (0.2-1.0); CO2 29.7 mmol/L (21.0-32.0); CREATININE 1.1 mg/dL (0.70-1.30); Calcium 9.1 mg/dL (8.5-10.1); Chloride 103 mmol/L (98-107); Estimated GFR 97.95 (mL/min/1.73m2); Glucose 91 mg/dL (74-106); Potassium 3.9 mmol/L (3.5-5.1); Sodium 140 mmol/L (136-145); Total Protein 7.4 g/dL (6.4-8.2)
== END 2024-11-04 12:59 | disposition home or self-care (01) ==
PROVIDERS: Emergency Provider Nurse Practitioner Family; PCP Family Medicine
DX: N39.0 Urinary tract infection, site not specified (principal); K59.00 Constipation, unspecified
CPT/HCPCS: 36415; 80053; 83690; 99285; 74177; 85025; 99283; J3490